=== PATIENT | female | born 1955 | race Caucasian/White ===

== ENCOUNTER 2018-05-23 11:56 | Emergency (ER) | payer OTHER ==
[2013-06-21 11:23] VITALS: BMI 34.3
[2018-05-23] MEDS ORDERED: DiphenhydrAMINE 50 mg/ml Inj IVP STA (12:40)
--- NOTE | 2018-05-23 12:51 | ED PDOC ---
HPI: Eye Injury/Pain Time Seen by Provider: 05/23/18 12:20 Chief Complaint (Nursing): Eye Problem Chief Complaint (Provider): Eye Problem History Per: Patient History/Exam Limitations: no limitations Onset/Duration Of Symptoms: Days (x 1 week) Current Symptoms Are (Timing): Still Present Associated Symptoms: Swelling Additional Complaint(s): 63 year old female presents to the ED with swelling of bilateral eyes and lips for the last week. Patient reports swelling is causing her eyes to nearly shut. She took 1 Benadryl and it did not help. Patient regularly takes pravastatin, omeprazole and Losartan. She had similar symptoms previously and was given medications for it with relief. PMD: Rupali DORMAN,Abdi Jett Past Medical History Reviewed: Historical Data, Nursing Documentation, Vital Signs Vital Signs: Last Vital Signs Temp 98.3 F 05/23/18 12:12 Pulse 64 05/23/18 12:12 Resp 16 05/23/18 12:12 BP 149/100 H 05/23/18 12:12 Pulse Ox 97 05/23/18 12:12 - Medical History PMH: No Chronic Diseases - Surgical History Surgical History: No Surg Hx Denies: Pacemaker - Family History Family History: States: Unknown Family Hx - Home Medications Home Medications: Ambulatory Orders Medication Instructions Recorded Amlodipine Besylate 5 mg PO DAILY 06/21/13 Aspirin [Aspir 81] 81 mg PO DAILY 06/21/13 Omeprazole 40 mg PO DAILY 06/21/13 Simvastatin 20 mg PO DAILY 06/21/13 aMILoride [Amiloride HCl] 5 mg PO DAILY 06/21/13 DiphenhydrAMINE [Benadryl] 50 mg PO Q6 PRN #24 cap 05/23/18 Famotidine [Pepcid] 20 mg PO BID #10 tab 05/23/18 Prednisone [Deltasone] 3 tab PO DAILY #12 tablet 05/23/18 - Allergies Allergies/Adverse Reactions: Allergies Allergy/AdvReac Type Severity Reaction Status Date / Time No Known Allergies Allergy Verified 05/23/18 12:12 Review of Systems ROS Statement: Except As Marked, All Systems Reviewed And Found Negative Eyes: Positive for: Other (swelling) ENT: Positive for: Other (lip swelling) Physical Exam - Reviewed Nursing Documentation Reviewed: Yes Vital Signs Reviewed: Yes - Physical Exam Appears: Positive for: Non-toxic, No Acute Distress Skin: Positive for: Normal Color, Warm, Dry Eye Exam: Positive for: Other (bilateral eye swelling) ENT: Positive for: Other (lip swelling). Negative for: Tonsillar Swelling ( uvular edema) Neck: Positive for: Normal, Painless ROM, Supple Cardiovascular/Chest: Positive for: Regular Rate, Rhythm. Negative for: Murmur Respiratory: Positive for: Normal Breath Sounds. Negative for: Respiratory Distress Extremity: Positive for: Normal ROM (x 4). Negative for: Deformity Neurologic/Psych: Positive for: Alert, Oriented (x 3). Negative for: Motor/ Sensory Deficits - ECG O2 Sat by Pulse Oximetry: 97 (RA) Pulse Ox Interpretation: Normal - Progress ED Course And Treament: re-examined in ED and noted to have improvement with swelling. advised to stop Losartan and f/u with pmd for evaluation and start of alternative bp medications. Medical Decision Making Medical Decision Makin:40 Impression: bilateral eye and lip swelling Initial plan: --Benadryl 50 mg IVP --Pepcid 20 mg IVP --Solumedrol 125 mg IVP Scribe Attestation: Documented by Maribeth Ling, acting as a scribe for Rachana Wang PA-C Provider Scribe Attestation: All medical record entries made by the Scribe were at my direction and personally dictated by me. I have reviewed the chart and agree that the record accurately reflects my personal performance of the history, physical exam, medical decision making, and the department course for this patient. I have also personally directed, reviewed, and agree with the discharge instructions and disposition. Disposition - Clinical Impression Clinical Impression: Allergic reaction - Patient ED Disposition Is Patient to be Admitted: No - Disposition Disposition: Routine/Home Disposition Time: 14:57 Condition: FAIR Prescriptions: DiphenhydrAMINE [Benadryl] 50 mg PO Q6 PRN #24 cap PRN Reason: Swelling Famotidine [Pepcid] 20 mg PO BID #10 tab Prednisone [Deltasone] 3 tab PO DAILY #12 tablet Instructions: Angioedema (DC) Print Language: [place]
[2018-05-23] MEDS ORDERED: DiphenhydrAMINE 50 mg/ml Inj ONE (13:31)
[2018-05-23 15:15] VITALS: BP 158/90; PULSE 67; RESP 18; TEMP 98.4
[2018-05-23 21:17] VITALS: O2SAT 97
== END 2018-05-23 15:18 | disposition home or self-care (01) ==
LOC: H.ER 11:56
DX: T78.40XA Allergy, unspecified, initial encounter (principal)
CPT/HCPCS: 96374; 96375; 99283; J1200; J2930